=== PATIENT | female | born 1970 | race Caucasian/White ===

== ENCOUNTER → 2017-04-21 | Outpatient (CLI) | payer BC | LOC: FIMAGING 08:47 | PROVIDERS: ATTEND Nurse Practitioner Adult Health | PROC: CP1C1ZZ Planar Nuclear Medicine Imaging of Right Lower Extremity using Technetium 99m (Tc-99m) (ICD-10-PCS; principal; 2017-04-21) | DX: M25.561 Pain in right knee (principal) | CPT/HCPCS: 78300; A9503 ==